=== PATIENT | male | born 1945 | race Caucasian/White ===

== ENCOUNTER → 2022-02-21 | Day surgery (SDC) | payer MEDICARE, OTHER ==
[~2022-02-21] VITALS: Ht 185.4 cm; Wt 95.3 kg
[~2022-02-21] MED LIST: BUPIVACAINE W/ EPINEPH 0.5% INJ 50ML MDV IJ ONE; DexAMETHasone SOD PHOS 10MG/1ML VIAL INJ ONE; GLYCOPYRROLATE 0.2 MG/ML 1ML VIAL ONE; HYDROmorphone HCL 2 MG/ML VL/or syr IV PRN; LIDOCAINE 1%HCL (LOCAL ANESTH) 10 ML MDV ONE; MEPERIDINE HCL (25 MG/ML) 1ML VIAL ONE; METOCLOPRAMIDE HCL 5MG/ml INJ 2ml VIAL IV PRN; MIDAZOLAM HCL 2MG/2ML 2ml VIAL (1mg/ml) ONE; MORPHINE SULFATE 4 MG/ML SYR/VIAL IV PRN; NEOSTIGMINE 1 MG/ML INJ (10mg/10ML VIAL) ONE; ONDANSETRON HCL 4 MG/2 ML VIAL ONE; ROCURONIUM 10MG/ML 10ML VIAL IV ONE; ROPIVACAINE 0.5% (5MG/ML) 20ML AMPULE IJ ONE; SODIUM CHLORIDE LOCK 10 ML ONE; SUCCINYLCHOLINE CHLORIDE 20 MG/ML 10ML VIAL IV ONE; SUGAMMADEX 200mg/2ml Vial (100MG/ML) IV ONE; ceFAZolin 1GM VL ONE; ceFAZolin 1GM/50ML 100 ML IV ONE; fentaNYL CITRATE 5 ML ONE
[2022-02-21 11:30] VITALS: BP 145/75
== END | disposition home or self-care (01) ==
LOC: SUR 07:12
PROVIDERS: ATTEND Surgery
DX: K40.90 Unilateral inguinal hernia, without obstruction or gangrene, not specified as recurrent (principal); Z53.8 Procedure and treatment not carried out for other reasons; I10 Essential (primary) hypertension; E78.5 Hyperlipidemia, unspecified; I25.10 Atherosclerotic heart disease of native coronary artery without angina pectoris; Z95.5 Presence of coronary angioplasty implant and graft; Z87.891 Personal history of nicotine dependence; Z20.822 Contact with and (suspected) exposure to COVID-19
CPT/HCPCS: 36415; 84484; 86850; 86900; 86901; J0330; J0690; J1100; J2175; J2250; J2405; J3010; J7030; U0003; J2001

== ENCOUNTER → 2022-02-26 | Outpatient (CLI) | payer MEDICARE, OTHER | END | disposition home or self-care (01) | LOC: Rad HDHVI 15:50 | PROVIDERS: ATTEND Internal Medicine Cardiovascular Disease | DX: Z01.818 Encounter for other preprocedural examination (principal); I35.1 Nonrheumatic aortic (valve) insufficiency; I77.810 Thoracic aortic ectasia | CPT/HCPCS: 93306 ==

== ENCOUNTER 2022-04-25 07:04 | Day surgery (SDC) | payer MEDICARE, OTHER ==
[~2022-04-25] VITALS: Ht 185.4 cm; Wt 96.2 kg
[~2022-04-25 07:04] MED LIST changes: +ATOR10TA PO; -BUPIVACAINE W/ EPINEPH 0.5% INJ 50ML MDV IJ ONE; +CHOL100067 PO; -DexAMETHasone SOD PHOS 10MG/1ML VIAL INJ ONE; +ENAL20TA8 PO; -GLYCOPYRROLATE 0.2 MG/ML 1ML VIAL ONE; -HYDROmorphone HCL 2 MG/ML VL/or syr IV PRN; -LIDOCAINE 1%HCL (LOCAL ANESTH) 10 ML MDV ONE; -MEPERIDINE HCL (25 MG/ML) 1ML VIAL ONE; -METOCLOPRAMIDE HCL 5MG/ml INJ 2ml VIAL IV PRN; -MIDAZOLAM HCL 2MG/2ML 2ml VIAL (1mg/ml) ONE; -MORPHINE SULFATE 4 MG/ML SYR/VIAL IV PRN; -NEOSTIGMINE 1 MG/ML INJ (10mg/10ML VIAL) ONE; -ONDANSETRON HCL 4 MG/2 ML VIAL ONE; -ROCURONIUM 10MG/ML 10ML VIAL IV ONE; -ROPIVACAINE 0.5% (5MG/ML) 20ML AMPULE IJ ONE; -SODIUM CHLORIDE LOCK 10 ML ONE; -SUCCINYLCHOLINE CHLORIDE 20 MG/ML 10ML VIAL IV ONE; -SUGAMMADEX 200mg/2ml Vial (100MG/ML) IV ONE; -ceFAZolin 1GM VL ONE; -ceFAZolin 1GM/50ML 100 ML IV ONE; -fentaNYL CITRATE 5 ML ONE
[2022-04-25] MEDS ORDERED: BUPIVACAINE 0.25% INJ 50ML VIAL ONE (07:09)
[2022-04-25] MEDS ORDERED: LIDOCAINE 1%HCL (LOCAL ANESTH) 10 ML MDV ONE (07:09)
[2022-04-25] MEDS ORDERED: ceFAZolin 1GM VL ONE (07:09)
[2022-04-25] MEDS ORDERED: ONDANSETRON HCL 4 MG/2 ML VIAL IV PRN (07:45)
[2022-04-25] MEDS ORDERED: HYDROmorphone HCL 2 MG/ML VL/or syr IV PRN ×2 (07:45)
[2022-04-25] MEDS ORDERED: fentaNYL CITRATE 100 MCG/2 ML VL ONE ×2 (08:01→09:56)
[2022-04-25] MEDS ORDERED: MIDAZOLAM HCL 2MG/2ML 2ml VIAL (1mg/ml) ONE (08:01)
[2022-04-25] MEDS ORDERED: ROCURONIUM 10MG/ML 10ML VIAL IV ONE (08:02)
[2022-04-25] MEDS ORDERED: LIDOCAINE 2% (LOCAL ANESTH.) PF 5ml SDV ONE (08:02)
[2022-04-25] MEDS ORDERED: ONDANSETRON HCL 4 MG/2 ML VIAL ONE (08:02)
[2022-04-25] MEDS ORDERED: ceFAZolin 1GM/50ML 100 ML IV ONE (08:14)
[2022-04-25] MEDS ORDERED: PROPOFOL 10 MG/ML 20 ML IV ONE (11:25)
[2022-04-25] MEDS ORDERED: HYDROmorphone HCL 2 MG/ML VL/or syr ONE (11:59)
[2022-04-25] MEDS ORDERED: HYDROmorphone HCL 2 MG/ML VL/or syr IV ONE (12:10)
[2022-04-25 12:40] VITALS: BP 144/89
== END 2022-04-25 12:51 | disposition home or self-care (01) ==
LOC: SUR 07:04
PROVIDERS: ATTEND Surgery
DX: K40.90 Unilateral inguinal hernia, without obstruction or gangrene, not specified as recurrent (principal); I10 Essential (primary) hypertension; J43.9 Emphysema, unspecified; Z79.899 Other long term (current) drug therapy; Z20.822 Contact with and (suspected) exposure to COVID-19
CPT/HCPCS: 49650; 86850; 86900; 86901; C1781; J0690; J1170; J2001; J2250; J2405; J2704; J3010; J3490; J7030; S2900; U0003

== ENCOUNTER 2023-06-21 16:26 | Emergency (ER) | payer MEDICARE, OTHER ==
[~2023-06-21] VITALS: Ht 185.4 cm; Wt 95.7 kg
[~2023-06-21 16:26] MED LIST changes: +ENAL1TAB48 PO; -ENAL20TA8 PO
[2023-06-21] MEDS ORDERED: LIDOCAINE 1% HCL (LOCAL ANESTH.) INJ 20ML MDV IJ ONE (17:15)
[2023-06-21 17:23] VITALS: BP 124/69; PULSE 99; RESP 18; TEMP 98.3; O2SAT 95
[2023-06-21] MEDS ORDERED: TETANUS-DIPTH-ACEL PERTUSSIS 0.5ML SYR Tdap IM ONE (17:45)
[2023-06-21] MEDS ORDERED: AUG875T PO ×2 (17:46)
[2023-06-21] MEDS ORDERED: CEPH500C PO (17:52)
== END 2023-06-21 17:50 | disposition home or self-care (01) ==
LOC: ER 16:26
DX: S61.412A Laceration without foreign body of left hand, initial encounter (principal); Z79.899 Other long term (current) drug therapy; W22.8XXA Striking against or struck by other objects, initial encounter; Y93.89 Activity, other specified; Y92.89 Other specified places as the place of occurrence of the external cause; Y99.8 Other external cause status
CPT/HCPCS: 12002; 90471; 90715

== ENCOUNTER 2023-07-01 09:13 | Emergency (ER) | payer MEDICARE, OTHER ==
[~2023-07-01] VITALS: Ht 185.4 cm; Wt 96.1 kg
[~2023-07-01 09:13] MED LIST changes: +CEPH500C PO
[2023-07-01 10:49] VITALS: BP 161/87; PULSE 88; RESP 88; TEMP 98; O2SAT 95
== END 2023-07-01 12:00 | disposition home or self-care (01) ==
LOC: ER 09:13
DX: S61.412D Laceration without foreign body of left hand, subsequent encounter (principal); Z79.899 Other long term (current) drug therapy; X58.XXXD Exposure to other specified factors, subsequent encounter